=== PATIENT | female | born 1940 | race Caucasian/White ===

== ENCOUNTER 2017-09-18 09:51 | Emergency (ER) | payer MEDICARE, OTHER ==
[~2017-09-18] VITALS: Ht 165.1 cm; Wt 72.9 kg
[~2017-09-18 09:51] MED LIST: BENI40TA7 PO; VENTAER INH; VIST50CA PO; ZOLO25TA PO
[2017-09-18 10:10] VITALS: O2SAT 95
[2017-09-18 10:25] VITALS: BP 206/93; PULSE 70; RESP 16; TEMP 97.8; O2SAT 97
[2017-09-18] MEDS ORDERED: KETOROLAC TROMETHAMINE 30 MG/ML (IVP) VIAL IVP ONE (11:30)
[2017-09-18] MEDS ORDERED: SODIUM CHLORIDE 0.9% FLUSH 10 ML FLUSH IV FLUSH PRN (11:30)
[2017-09-18] MEDS ORDERED: ONDANSETRON HCL 4 MG/2 ML VIAL IVP ONE (11:30)
--- NOTE | 2017-09-18 11:39 | PD ---
HPI Chief Complaint: Flank/Kidney Pain Time Seen by Provider: 11:03 Travel History International Travel<30 days: No Contact w/Intl Traveler<30days: No Traveled to known affect area: No History of Present Illness HPI Patient is a 77-year-old female presents the emergency department for evaluation of right flank pain radiating to right groin fairly sudden onset about an hour and a half ago. Patient states she was in the bathroom thinking that she had to move her bowels when she had the sudden onset of pain. She states she has a history of kidney stones. She denies any urinary urgency blood in her urine difficulty urinating. Significant past medical history of AAA repair over a year ago. She denies any blood in the stool. States her pain was severe but is waxing and waning. Associated with some mild nausea. PFSH Past Medical History Arthritis: Yes Anxiety: Yes Depression: Yes Heart Rhythm Problems: Yes Cancer: Yes (BREAST) Cardiovascular Problems: Yes (htn on meds) High Cholesterol: Yes Diabetes: Yes (DIET CONTROLLED) Diminished Hearing: No Gastrointestinal Disorders: Yes (ULCER) Headaches: Yes Hypertension: Yes Medical other: Yes (ANEMIA, ARTHRITIS) Musculoskeletal: Yes Neurologic: Yes Psychiatric: Yes Respiratory: Yes (HX PNEUMONIA) Ulcer: Yes Tetanus Vaccination: < 5 Years Influenza Vaccination: Yes ?: Not Menopausal: Yes Past Surgical History Abdominal Surgery: Yes (CHOLECYSTECTOMY) Appendectomy: Yes Cholecystectomy: Yes Gynecologic Surgery: Yes (TOTAL HYSTERECTOMY) Hysterectomy: Yes Pacemaker: No Other Surgery: Yes (RIGHT BREAST LUMPECTOMY) Social History Alcohol Use: No Tobacco Use: Yes (07/21 PPD) Substance Use: No Allergies-Medications (Allergen,Severity, Reaction): Coded Allergies: Iodinated Contrast- Oral and IV Dye (Verified Allergy, Severe, throat swelling and hives, 09/18/17) Sulfa (Sulfonamide Antibiotics) (Verified Allergy, Severe, HIVES, 09/18/17) amoxicillin (Verified Allergy, Severe, RASH, 09/18/17) codeine (Verified Allergy, Severe, UNKNOWN, 09/18/17) Uncoded Allergies: DYES (Allergy, Severe, RASH, SWELLING OF TONGUE, 07/05/13) Reported Meds & Prescriptions Reported Meds & Active Scripts Active Zofran (Ondansetron HCl) 4 Mg Tab 4 Mg PO Q6HR PRN Flomax (Tamsulosin HCl) 0.4 Mg Cap 0.4 Mg PO HS Benicar Hct (Olmesartan-Hydrochlorothiazide) 40-25 mg Tab 1 Tab PO DAILY Review of Systems Except as stated in HPI: all other systems reviewed are Neg Physical Exam Narrative GENERAL: Well-developed well-nourished in no obvious distress SKIN: Focused skin assessment warm/dry. HEAD: Atraumatic. Normocephalic. EYES: Pupils equal and round. No scleral icterus. No injection or drainage. ENT: No nasal bleeding or discharge. Mucous membranes pink and moist. NECK: Trachea midline. No JVD. CARDIOVASCULAR: Regular rate and rhythm. No murmur appreciated. RESPIRATORY: No accessory muscle use. Clear to auscultation. Breath sounds equal bilaterally. GASTROINTESTINAL: Abdomen soft, non-tender, nondistended. Hepatic and splenic margins not palpable. Well-healed multiple abdominal surgical scars. No rebound no percussive tenderness, no pulsatile mass, abdomen is soft nontender, no CVA tenderness. No mass no hernia. MUSCULOSKELETAL: No obvious deformities. No clubbing. No cyanosis. No edema. NEUROLOGICAL: Awake and alert. No obvious cranial nerve deficits. Motor grossly within normal limits. Normal speech. PSYCHIATRIC: Appropriate mood and affect; insight and judgment normal. Data Data Last Documented VS Vital Signs Date Time Temp Pulse Resp B/P (MAP) Pulse Ox O2 Delivery O2 Flow Rate FiO2 09/18/17 10:25 97.8 70 16 206/93 (130) 97 09/18/17 10:10 Room Air Orders Orders Urinalysis - C+S If Indicated (09/18/17 10:17) Complete Blood Count With Diff (09/18/17 11:19) Comprehensive Metabolic Panel (09/18/17 11:19) Lipase (09/18/17 11:19) Prothrombin Time / Inr (Pt) (09/18/17 11:19) Act Partial Throm Time (Ptt) (09/18/17 11:19) Iv Access Insert/Monitor (09/18/17 11:19) Ecg Monitoring (09/18/17 11:19) Oximetry (09/18/17 11:19) Ondansetron Inj (Zofran Inj) (09/18/17 11:30) Sodium Chloride 0.9% Flush (Ns Flush) (09/18/17 11:30) Ketorolac Inj (Toradol Inj) (09/18/17 11:30) Ct Abd/Pel W/O Iv Contrast (09/18/17 ) Ed Discharge Order (09/18/17 13:17) Labs Laboratory Tests Test 09/18/17 10:50 09/18/17 11:20 Urine Color YELLOW Urine Turbidity CLEAR Urine pH 5.5 Urine Specific [place] 1.010 Urine Protein NEG mg/dL Urine Glucose (UA) NEG mg/dL Urine Ketones NEG mg/dL Urine Occult Blood TRACE Urine Nitrite NEG Urine Bilirubin NEG Urine Urobilinogen 0.2 MG/DL Urine Leukocyte Esterase NEG Urine RBC 0-3 /hpf Urine WBC 0-2 /hpf Urine Squamous Epithelial Cells 0-5 /hpf Microscopic Urinalysis Comment CULT NOT INDICATED White Blood Count 8.8 TH/MM3 Red Blood Count 4.85 MIL/MM3 Hemoglobin 15.0 GM/DL Hematocrit 43.6 % Mean Corpuscular Volume 89.8 FL Mean Corpuscular Hemoglobin 30.9 PG Mean Corpuscular Hemoglobin Concent 34.4 % Red Cell Distribution Width 13.3 % Platelet Count 207 TH/MM3 Mean Platelet Volume 9.2 FL Neutrophils (%) (Auto) 82.2 % Lymphocytes (%) (Auto) 10.7 % Monocytes (%) (Auto) 3.6 % Eosinophils (%) (Auto) 0.7 % Basophils (%) (Auto) 2.8 % Neutrophils # (Auto) 7.3 TH/MM3 Lymphocytes # (Auto) 0.9 TH/MM3 Monocytes # (Auto) 0.3 TH/MM3 Eosinophils # (Auto) 0.1 TH/MM3 Basophils # (Auto) 0.2 TH/MM3 CBC Comment AUTO DIFF Differential Comment AUTO DIFF CONFIRMED Platelet Morphology Comment ENLARGED Prothrombin Time 9.4 SEC Prothromb Time International Ratio 0.9 RATIO Activated Partial Thromboplast Time 24.4 SEC Blood Urea Nitrogen 20 MG/DL Creatinine 1.10 MG/DL Random Glucose 128 MG/DL Total Protein 8.5 GM/DL Albumin 4.4 GM/DL Calcium Level 9.2 MG/DL Alkaline Phosphatase 70 U/L Aspartate Amino Transf (AST/SGOT) 19 U/L Alanine Aminotransferase (ALT/SGPT) 20 U/L Total Bilirubin 0.4 MG/DL Sodium Level 140 MEQ/L Potassium Level 4.1 MEQ/L Chloride Level 105 MEQ/L Carbon Dioxide Level 28.0 MEQ/L Anion Gap 7 MEQ/L Estimat Glomerular Filtration Rate 48 ML/MIN Lipase 252 U/L MDM Medical Decision Making Medical Screen Exam Complete: Yes Emergency Medical Condition: Yes Differential Diagnosis Kidney stone, leaking AAA highly unlikely, nephrolithiasis, UTI. Narrative Course Patient room to the emergency department, sign symptoms consistent with kidney stone. Abdomen is fairly benign and I highly doubt recurrent AAA or leaking AAA is playing a part in this. Still her UA was negative and initial thought was to have a CT of her aorta to be on the safe side. Unfortunately she does have a history of anaphylactic reaction to IV contrast And precludes the use of this testing modality. That reason we will do a CT without contrast and reassess the patient. CT scan shows no obvious AAA, no free fluid in the abdomen, there is a kidney stone in the right UVJ probably 2 cm superior to it which probably explains her symptoms Last 24 hours Impressions Abdomen/Pelvis CT 09/18/17 0000 Signed Impressions: Service Date/Time: Monday, September 18, 2017 12:51 - CONCLUSION: There is moderate hydronephrosis present right kidney with perinephric stranding and perinephric fluid, hydroureter, and a right distal ureteral calculus as described above. Nonobstructing renal calculi are also noted bilaterally. Please see above discussion. Mio Leal MD Patient was given Toradol, and reassessment patient states she still feeling fairly uncomfortable and she is pacing around the room. She was offered additional pain medication but states she will not take anything with narcotic in it because she is allergic. Unfortunately have nothing else to offer the patient except for Tylenol at this time. She would like to go home and follow with a urologist. I discussed with her that she can return to the emergency department if her symptoms worsen. Discussed symptomatic management. She is stable for discharge Diagnosis Primary Impression: Renal colic on right side Additional Impression: Nephrolithiasis Referrals: Jay Jay Miller DO Med/Other Pt SpecificInfo: Prescription(s) given Scripts Ondansetron (Zofran) 4 Mg Tab 4 MG PO Q6HR Y for NAUSEA OR VOMITING, #20 TAB 0 Refills Prov: Alexandr Meza MD 09/18/17 Tamsulosin (Flomax) 0.4 Mg Cap 0.4 MG PO HS for Manage Prostate Problems, #30 CAP 0 Refills Prov: Alexandr Meza MD 09/18/17 Disposition: 01 DISCHARGE HOME Condition: Stable Alexandr Meza MD Sep 18, 2017 11:39
[2017-09-18 11:42] LABS: AUTOMATED NEUTROPHIL # 7.3 TH/MM3 (1.8-7.7); BASOPHIL # 0.2 TH/MM3 (0-0.2); BASOPHIL % 2.8 % (0.0-2.0); EOSINOPHIL # 0.1 TH/MM3 (0-0.4); EOSINOPHIL % 0.7 % (0.0-4.0); HEMATOCRIT 43.6 % (35.0-46.0); LYMPH % 10.7 % (9.0-44.0); LYMPHOCYTE # 0.9 TH/MM3 (1.0-4.8); MEAN CELL VOLUME 89.8 FL (80.0-100.0); MEAN CORPUSCULAR HEMOGLOBIN 30.9 PG (27.0-34.0); MEAN CORPUSCULAR HGB CONC 34.4 % (32.0-36.0); MEAN PLATELET VOLUME 9.2 FL (7.0-11.0); MONO % 3.6 % (0.0-8.0); MONOCYTE # 0.3 TH/MM3 (0-0.9); NEUT % 82.2 % (16.0-70.0); PLATELET COUNT 207 TH/MM3 (150-450); RED BLOOD COUNT 4.85 MIL/MM3 (4.00-5.30); RED CELL DISTRIBUTION WIDTH 13.3 % (11.6-17.2); WHITE BLOOD COUNT 8.8 TH/MM3 (4.0-11.0)
[2017-09-18 11:44] LABS: BILIRUBIN, URINE NEG (NEG); BLOOD, URINE TRACE (NEG); GLUCOSE,URINE NEG (NEG); KETONE, URINE NEG (NEG); NITRITE,URINE NEG (NEG); PH, URINE 5.5 (5.0-8.5); URINE COLOR YELLOW (YELLW/STRAW); URINE LEUKOCYTE ESTERASE NEG (NEG)
[2017-09-18 11:55] LABS: CHLORIDE 105 MEQ/L (98-107); SODIUM (NA) 140 MEQ/L (136-145)
[2017-09-18 11:59] LABS: CALCIUM 9.2 MG/DL (8.5-10.1); INTERNATIONAL NORMALIZED RATIO 0.9 RATIO; PROTHROMBIN TIME - PATIENT 9.4 SEC (9.8-11.6)
[2017-09-18 12:00] LABS: ALBUMIN 4.4 GM/DL (3.4-5.0); BLOOD UREA NITROGEN 20 MG/DL (7-18); GLUCOSE,RANDOM 128 MG/DL (74-106)
[2017-09-18 12:02] LABS: ALT (GPT) 20 U/L (10-53)
[2017-09-18 12:03] LABS: AST (GOT) 19 U/L (15-37); GLOMERULAR FILTRATION RATE 48 ML/MIN (>89)
[2017-09-18 12:04] LABS: TOTAL BILIRUBIN ADULT 0.4 MG/DL (0.2-1.0); TOTAL PROTEIN 8.5 GM/DL (6.4-8.2)
[2017-09-18 12:04] LABS: RBC, URINE 0-3 /hpf (0-3); SQUAMOUS EPITHELIAL CELL URINE 0-5 /hpf (0-5); WBC, URINE 0-2 /hpf (0-5)
[2017-09-18 12:05] LABS: ALKALINE PHOSPHATASE 70 U/L (45-117)
--- NOTE | 2017-09-18 13:06 | RADRPT ---
EXAM DATE/TIME: 09/18/2017 12:51 [facility] COMPARISON: No previous studies available for comparison. INDICATIONS : Right sided pain radiating to back. ORAL CONTRAST: No oral contrast ingested. RADIATION DOSE: 14.12 CTDIvol (mGy) MEDICAL HISTORY : Hypertension. Carcinoma, breast. Diabetes. SURGICAL HISTORY : Cholecystectomy. Appendectomy.Hysterectomy. ENCOUNTER: Initial ACUITY: 2 days PAIN SCALE: 8/10 LOCATION: Right abdomen TECHNIQUE: Volumetric scanning of the abdomen and pelvis was performed. Using automated exposure control and ad justment of the mA and/or kV according to patient size, radiation dose was kept as low as reasonably achievable to obtain optimal diagnostic quality images. DICOM format image data is available electro nically for review and comparison. FINDINGS: Coronary artery calcification is noted. Patient is status post cholecystectomy, appendectomy and hyst erectomy. No pleural or pericardial effusions. Spleen, pancreas, adrenals are unremarkable. Left uppe r pole kidney demonstrates a nonobstructing 5 mm stone. There is a tiny exophytic cyst at the left lo wer pole. Right kidney demonstrates moderate hydronephrosis, perinephric stranding, edema, and multip le nonobstructing stones. 3.5 mm midpole calculus, date lower pole calculus, and there is mild hydrou reter identified. On image 76 at the level of the acetabulum a right distal ureteral stone measuring 3 point millimeters is noted 2 cm proximal to the ureterovesical junction. There are atherosclerotic calcifications of the aorta and iliac vessels. The bladder is unremarkable. There is severe diverticu losis of the sigmoid colon and descending colon. 3.4 mm right lower lobe noncalcified nodule. There are degenerative changes of the spine and postsurgical changes to the lower lumbar spine. CONCLUSION: There is moderate hydronephrosis present right kidney with perinephric stranding and perinephric flui d, hydroureter, and a right distal ureteral calculus as described above. Nonobstructing renal calculi are also noted bilaterally. Please see above discussion. Mio Leal MD on September 18, 2017 at 13:01 Board Certified Radiologist. This report was verified electronically.
[2017-09-18] MEDS ORDERED: TAMS5CAP PO (13:17)
[2017-09-18] MEDS ORDERED: ZOFR4TAB PO (13:25)
== END 2017-09-18 14:40 | disposition home or self-care (01) ==
LOC: PHED 09:51
DX: N23 Unspecified renal colic (principal); N20.0 Calculus of kidney; M19.90 Unspecified osteoarthritis, unspecified site; F32.9 Major depressive disorder, single episode, unspecified; F17.210 Nicotine dependence, cigarettes, uncomplicated; I10 Essential (primary) hypertension; E78.00 Pure hypercholesterolemia, unspecified; E11.9 Type 2 diabetes mellitus without complications; Z85.3 Personal history of malignant neoplasm of breast
CPT/HCPCS: 74176; 80053; 81001; 83690; 85025; 85610; 85730; 96374; 96375; 99284; J1885; J2405